=== PATIENT | male | born 1945 | race Caucasian/White ===

== ENCOUNTER 2016-07-29 22:32 | Emergency (ER) | payer MEDICARE, OTHER | END 2016-07-30 04:00 | disposition home or self-care (01) | LOC: ER 22:32 | DX: S01.112A Laceration without foreign body of left eyelid and periocular area, initial encounter (principal); W06.XXXA Fall from bed, initial encounter; Y92.009 Unspecified place in unspecified non-institutional (private) residence as the place of occurrence of the external cause; I10 Essential (primary) hypertension; E11.9 Type 2 diabetes mellitus without complications; Z79.02 Long term (current) use of antithrombotics/antiplatelets; Z88.8 Allergy status to other drugs, medicaments and biological substances | CPT/HCPCS: 12002; 70450; 70486; 96374; 99070; 99283-25; 99284 ==

== ENCOUNTER 2016-08-09 10:59 | Emergency (ER) | payer MEDICARE, OTHER | END 2016-08-09 12:55 | disposition home or self-care (01) | LOC: ER 10:59 | DX: M79.644 Pain in right finger(s) (principal); W19.XXXA Unspecified fall, initial encounter; Y92.009 Unspecified place in unspecified non-institutional (private) residence as the place of occurrence of the external cause; Z79.899 Other long term (current) drug therapy; Z88.8 Allergy status to other drugs, medicaments and biological substances | CPT/HCPCS: 73130; 99070; 99283; 99283-25 ==

== ENCOUNTER 2016-08-25 10:54 | Emergency (ER) | payer OTHER, MEDICARE | END 2016-08-25 11:22 | disposition home or self-care (01) | LOC: ER 10:54 | DX: S01.112D Laceration without foreign body of left eyelid and periocular area, subsequent encounter (principal); W19.XXXD Unspecified fall, subsequent encounter; F17.210 Nicotine dependence, cigarettes, uncomplicated; Z88.8 Allergy status to other drugs, medicaments and biological substances | CPT/HCPCS: 99282 ==